=== PATIENT | female | born 1960 | race African-American/Black ===

== ENCOUNTER 2016-06-27 23:20 | Emergency (ER) | payer OTHER ==
--- NOTE | 2016-06-28 02:36 | PROVIDER DOCUMENTATION ---
HPI-Musculoskeletal Pain/Inj - GENERAL Source: family - HX OF PRESENT ILLNESS-MUSKULOSKELTAL Severity in ED: mild Onset/Duration: other (2 weeks) Timing: still present Modifying Factors: improves with: nothing Any recent injury?: No Locality of Occurance: Home Similar Symptoms Previously?: No Recently seen or treated by another doctor?: No - LOWER EXTREMITY PAIN/INJURY Lower Extremities Pain: foot: left Context / Method of Injury: reports: unknown Associated Symptoms: reports: denies symptoms <Leena Barajas - Last Filed: 06/28/16 02:45> <Tobi Whitley - Last Filed: 06/28/16 02:51> - GENERAL Chief Complaint: Extremity Pain Stated Complaint: LT FT PAIN Time Seen by Provider: 06/28/16 02:20 - HX OF PRESENT ILLNESS-MUSKULOSKELTAL Nature of Presenting Problem: 56 year old F presents to the ED with a cc of left foot numbness and tingling x2 weeks. PT states that she has a hx of neuropathy. (Leena Barajas) Review of Systems - Adult - REVIEW OF SYSTEMS - ADULT Constitutional: denies: chills, fever Eyes: reports: no symptoms reported Ears, Nose, Mouth & Throat: reports: no symptoms reported Cardiovascular: reports: no symptoms reported Respiratory: reports: no symptoms reported Gastrointestinal: reports: no symptoms reported Genitourinary: reports: no symptoms reported Musculoskeletal: reports: muscle aches. denies: muscle weakness Integumentary: denies: skin sores/ulcer, skin thickening Neurological: reports: numbness, paresthesia Psychiatric: reports: no symptoms reported Endocrine: reports: no symptoms reported Hematologic/Lymphatic: reports: no symptoms reported Allergic/Immunologic: reports: no symptoms reported All Other Systems: Reviewed and Negative <Leena Barajas - Last Filed: 06/28/16 02:45> Past History - Adult - PAST MEDICAL HISTORY-ADULT Review of Records: reports: Nursing Assessment Review, Medications Reviewed Major Childhood Illnesses: reports: denies history Gastrointestinal: reports: GERD Obstetrical/Gynecological: reports: uterine/ovarian cancer Musculoskeletal: reports: chronic pain, intervertebral disc disease (DDD), other (FIBROMYALGIA) Neurological: reports: other (neuropathy, RLS) Other Conditions: reports: denies history Additional History: Fibromyalgia - PRIOR SURGERIES/PROCEDURES Surgical/Procedure History: reports: cholecystectomy, hysterectomy, tonsillectomy, orthopedic (extremity) (total hip) - PRIOR HOSPITALIZATIONS Prior Hospitalizations: reports: none - IMMUNIZATION STATUS Childhood Immunizations: See Nurse Assessment Flu Vaccine: See Nurse Assessment - FAMILY HISTORY Family History: reviewed, not pertinent - SOCIAL HISTORY Smoking: non-smoker Substance Use: none/never Alcohol Use Frequency: occasionally <Leena Barajas - Last Filed: 06/28/16 02:45> Physical Exam-Injury Related - Physical Exam-Injury Related Initial Vital Signs Reviewed: Yes General Appearance: appears well, alert, no apparent distress Respiratory: chest non-tender, lungs clear, normal breath sounds Cardiovascular: normal peripheral pulses, regular rate, rhythm, no edema Integumentary: normal color, warm/dry Neurologic: sensory deficit (left foot) <Leena Barajas - Last Filed: 06/28/16 02:45> Progress - XRAY 1 XRAY: Left XRAY Study: Foot Impression: Normal XRAY Interpretation: Negative: Dr. Alex FAUSTIN <Leena Barajas - Last Filed: 06/28/16 02:45> <Tobi Whitley - Last Filed: 06/28/16 02:51> - PLAN OF CARE/RESULTS Progress/Plan/Lab Results: plan of care: imaging Orders Category Date Time Status FOOT COMPLETE LEFT [RAD] Stat Exams 06/27/16 23:39 Taken Vital Signs - 24 hr 06/27/16 06/27/16 23:23 23:31 Temperature 97.9 F 97.9 F Pulse Rate 110 H 113 H Respiratory 18 17 Rate Blood Pressure 153/78 153/78 O2 Sat by Pulse 100 100 Oximetry Pt given results and will be d/c home w/o rx to follow up with PCP. Pt verbally understood instructions. PT remained clinically stable throughout the course of the ED stay and will return if symptoms worsen. (Leena Barajas) Departure <Leena Barajas - Last Filed: 06/28/16 02:45> - Departure Time of Disposition Order: 02:50 Certified Medical Emergency: Emergent <Tobi Whitley - Last Filed: 06/28/16 02:51> - Departure DIAGNOSIS: Neuropathy Disposition: HOME 01 Condition: Good Prescriptions: Oxycodone HCl/Acetaminophen [Percocet 7.5-325 mg Tablet] 1 each PO Q4-8H PRN PRN #14 tablet PRN Reason: Pain Referrals: None,PCP [Primary Care Provider] - Marlena Han III, MD [STAFF PHYSICIAN] - Attestation - Scribe Verification/Attestation Scribe:: Leena Barajas Acting as Scribe for:: Tobi Whitley Scribe documention review:: This chart was documented by a scribe and accurately reflects the service the provider performed and the decisions made by the provider. <Leena Barajas - Last Filed: 06/28/16 02:45> Physician Attestation - Physician Attestation I, the provider, attest to the following statement:: Tobi Whitley Physician documentation Attestation:: This documentation recorded by the scribe accurately reflects the service I personally performed and the decisions made by me. <Leena Barajas - Last Filed: 06/28/16 02:45>
[2016-06-28 03:09] VITALS: BP 149/88
--- NOTE | 2016-06-28 08:25 | Diag Imaging Result Document ---
PROCEDURE NAME: FOOT COMPLETE LEFT - 06/27/2016 LEFT FOOT, 3 VIEWS: FINDINGS: There are some degenerative changes present in the ankle and the talonavicular joint. There is some interphalangeal joint arthropathy as well, particularly in the 3rd and 4th toes. No evidence of acute fracture or dislocation, periosteal reaction or lysis is present. IMPRESSION: Degenerative arthritis.
== END 2016-06-28 03:09 | disposition home or self-care (01) ==
LOC: ED 23:20
DX: G62.9 Polyneuropathy, unspecified (principal); R20.0 Anesthesia of skin; R20.2 Paresthesia of skin; M79.1 Myalgia; G25.81 Restless legs syndrome; M79.7 Fibromyalgia; G89.29 Other chronic pain; K21.9 Gastro-esophageal reflux disease without esophagitis; Z79.899 Other long term (current) drug therapy; Z85.40 Personal history of malignant neoplasm of unspecified female genital organ; Z96.649 Presence of unspecified artificial hip joint